=== PATIENT | male | born 1955 | race Caucasian/White ===

== ENCOUNTER 2024-02-15 14:30 | Outpatient (CLI) | payer MEDICARE, BC, SELFPAY ==
--- NOTE | 2024-02-15 | DI.RAD_ITS ---
Exam(s) XR SHOULDER RT COMPLETE 2+V XR HUMERUS RT EXAM: XR SHOULDER RT COMPLETE 2+V CLINICAL HISTORY: PAIN RT SHOULDER M25.511. TECHNIQUE: 2D digital imaging was performed. Five views of the shoulder. Two views of the humerus COMPARISON: CR XR HUMERUS RT from 02/15/2024 FINDINGS: BONES: No acute fracture is present. No bony destructive lesion is seen. Spurring at greater tuberos ity. JOINTS: No dislocation present. Spurring at AC joint. Prominent spur projecting anteroinferiorly fr om the acromion. Undersurface of acromion mild spurring at the glenoid. The elbow is unremarkable a s visualized. SOFT TISSUE: Normal. IMPRESSION: No acute abnormality degenerative changes of the AC joint and prominent inferior acromial spur. Mild -to-moderate degenerative changes glenohumeral joint. DATA REPOSITORY: RADIATION DOSE DELIVERED:
== END 2024-02-15 14:50 ==
PROVIDERS: Visit Provider Physician Assistant Medical
DX: M19.011 Primary osteoarthritis, right shoulder (principal)
CPT/HCPCS: 73030; 73060

== ENCOUNTER 2024-05-23 11:27 | Emergency (ER) | payer MEDICARE, BC, SELFPAY ==
[2024-05-23 11:34] VITALS: BP 170/95; PULSE 89; RESP 15; TEMP 36.4; O2SAT 96
[2024-05-23] MEDS: Ibuprofen 600 MG TAB PO (12:07)
--- NOTE | 2024-05-23 13:28 | ED.GENADUL_ITS ---
Discharge Plan Disposition Patient Disposition: Home Condition: Stable Discharge Details Clinical Impression: Laceration of finger Primary Care Provider: GUILLE VALDEZ ED Provider: Sissy Sandra Home Meds and New Rx's Prescriptions: No Action lisinopril 10 mg tablet 10 mg PO DAILY ibuprofen 400 mg tablet 400 mg PO Q8H magnesium oxide 500 mg capsule 500 mg PO DAILY glucosamine-chondroitin [Osteo Bi-Flex] 250-200 mg tablet 2 tab PO TID Rx Instructions: give after food/meal saw palmetto 160 mg capsule 160 mg PO BID Rx Instructions: give with meal/snack tadalafil 20 mg tablet 20 mg PO DAILY PRN Rx Instructions: administer approximately 30min before sexual activity; do not use more than 1 dose per 24hrs ascorbate calcium (vitamin C) 500 mg tablet 500 mg PO DAILY Discharge Instructions Instructions: Laceration Repair With Stitches ED Additional Instructions: You were seen in the emergency department today for evaluation of a laceration. In our department you do full physical examination performed and the laceration was repaired with stitches. These need to be removed in 10 days, this can be with your primary care provider or at our emergency department please keep the area clean and dry, use [id number] antibiotic ointment and avoid excessive soaking, scrubbing, or movement. Please follow-up with your primary care provider in the next few days to discuss this visit and any symptoms that gómez e, worsen, or persist. Thank you for allowing us to be part of your care. Discharge Data Discharge Date/Time-TO BE ENTERED AT DEPARTURE: 05/23/24 13:39 HPI General Mode of arrival: ambulatory . Date/Time Provider Initiated Documentation: 05/23/24 11:43 . Limitations to Documentation: no limitations . Information obtained by: patient and old records reviewed . HPI Narrative: HPI: This is a 68-year-old male patient, [id number], without significant past medical history presenting for evaluation of a laceration. The patient reports that he cut his right pinky on a corrugated piece of metal shelley yesterday, approximately 20 hours ago. He states that he initially dressed the wound with skin glue and bandaging, but noticed ongoing bleeding that prompted him to seek care today. He reports that the shelley was intact and he has minimal concern for foreign bodies, no blunt trauma or concern for fracture or dislocation. This is an i solated injury and he was in his normal state of health prior to this event. Last tetanus shot 2013. Exam: Gen: Awake and alert, in no apparent distress HEENT: Non-icteric sclera Neck: Supple Lungs: No apparent respiratory distress, normal respiratory effort. CV: Appears well perfused Abdomen: Non-distended MSK: Moves 4 extremities without apparent limitation in ROM. The patient has a 1 and half centimeter laceration to the palmar aspect of the right pinky, with visible adipose tissue. Tendon is intact, patient has preserved resisted flexion at the PIP and DIP. Skin: Visualized skin without rashes, cyanosis. Neuro: Normal Gait, no obvious focal deficits or facial asymmetry. Speaks in full, clear sentences. Sensation preserved distal to this injury, brisk capillary refill Psych: Appropriate for situation. MDM: This is a 68-year-old male patient presenting for evaluation of finger laceration. Differential includes but is not limited to simple laceration, no evidence on physical examination for deep structure injury such as muscle or tendinous injury. Mechanism less consistent with foreign body, fracture, dislocation, no evidence of neurovascular derangement on my physical examination. ED Course: I provided the patient with a dose of ibuprofen, and the laceration was repaired using local anesthetic after thorough cleansing as noted below. Patient tolerated the procedure well, wound was dressed after the fact, and suture care instructions were provided. Stitches to be removed in approximately 10 days. Unfortunately, the patient did depart this facility before the tetanus shot to be administered, as he needed to get to another appointment. However, at this time, the patient has had a full medical evaluation and is safe for discharge to home. They are hemodynamically stable, ambulatory, and tolerating PO. They are understanding of the follow-up plan and return precautions. They left our facility without incident. Sissy Sandra MD Related Data Home Medications ?Medication ?Instructions ?Recorded ?Confirmed lisinopril 10 mg tablet 10 mg PO DAILY 03/01/24 05/23/24 ascorbate calcium (vitamin C) 500 500 mg PO DAILY 04/23/24 05/23/24 mg tablet glucosamine-chondroitin 250 mg-200 2 tab PO TID 04/23/24 05/23/24 mg tablet (Osteo Bi-Flex) ibuprofen 400 mg tablet 400 mg PO Q8H 04/23/24 05/23/24 magnesium oxide 500 mg capsule 500 mg PO DAILY 04/23/24 05/23/24 saw palmetto 160 mg capsule 160 mg PO BID 04/23/24 05/23/24 tadalafil 20 mg tablet 20 mg PO DAILY PRN 04/23/24 05/23/24 Allergies Allergy/AdvReac Type Severity Reaction Status Date / Time No Known Allergies Allergy Verified 05/23/24 14:04 General Stated Complaint: Laceration YVES: 4 Course Vital Signs Vital signs: Vital Signs Temperature 36.4 C L 05/23/24 11:34 Pulse 89 05/23/24 11:34 Respiratory Rate 15 05/23/24 11:34 Blood Pressure 170/95 H 05/23/24 11:34 Pulse Oximetry 96 05/23/24 11:34 Temperature 36.4 C L 05/23/24 11:34 Pulse 89 05/23/24 11:34 Respiratory Rate 15 05/23/24 11:34 Blood Pressure 170/95 H 05/23/24 11:34 Blood Pressure Position Sitting 05/23/24 11:34 Pulse Oximetry 96 05/23/24 11:34 Oxygen Delivery Method Room Air 05/23/24 11:34 Oxygen Flow Rate 0 05/23/24 11:34 Pain Level 1 05/23/24 12:07 Procedure Laceration Laceration 1: Date of Procedure: 05/23/24 Time of procedure: 13:00 Provider that performed the procedure: Sissy Sandra Patient Consented: Verbally Site: hand Side (If applicable): right Description: linear Depth: simple, single layer Local anesthetic: Lidocaine 2% Pre-repair:: wound explored, irrigated extensively and deep structures intact Skin layer closed with: nylon Suture size: 4-0 Number of sutures:: 7 Technique: simple, interrupted Complications: None Medical Decision Making Quality:SDOH Health Related Social Needs: No Data to Display PFSH All Active Problems (Updated 05/23/24 @ 13:29 by Sissy Sandra MD) Laceration of finger (Acute) Tendonitis of long head of biceps brachii of right shoulder (Acute) Rotator cuff tear, right (Acute) Social History Smoking risk assessment performed?: No Alcohol Intake: current Alcohol Intake frequency: a few times a month PAWSS Have you Been Recently Intoxicated or Drunk Within the Last 30 days?: No Have you Ever Experienced Previous Episodes of Alcohol Withdrawal?: No Have you ever Experienced Withdrawal Seizures?: No Have you ever Experienced Delirium Tremens(DT)s?: No Have you ever undergone Alcohol Rehabilitation Treatment (i.e, inpt ot outpatient treatment programs)?: No Have you ever Experienced Blackouts?: No Have you ever Combined Alcohol with other Downers within the last 90 days?: No Have you ever Combined Alcohol with any other Substance of Abuse during the last 90 days?: No Positive Blood Alcohol level on Presentation? [PCS.BAL]: No Evidence of Increased Autonomic Activity (i.e. HR>120, tremor, sweating, agitation, nausea)?: No Result: 0
[2024-05-23 13:36] VITALS: BP 167/90; PULSE 84; RESP 20; O2SAT 97
== END 2024-05-23 13:39 | disposition home or self-care (01) ==
PROVIDERS: Emergency Provider Emergency Medicine; PCP Family Medicine
DX: S61.216A Laceration without foreign body of right little finger without damage to nail, initial encounter (principal); W26.8XXA Contact with other sharp object(s), not elsewhere classified, initial encounter; Y93.89 Activity, other specified; Y92.79 Other farm location as the place of occurrence of the external cause
CPT/HCPCS: 12001; 99283

== ENCOUNTER 2024-06-29 05:44 | Day surgery (SDC) | payer OTHER, BC, MEDICARE, SELFPAY ==
[2024-06-29] VITALS (27 sets, daily range): BP systolic 103–145; BP diastolic 54–80; PULSE 69–83; RESP 15–21; TEMP 36.2–36.5; O2SAT 95–98; BMI 29.1
[2024-06-29] MEDS: Lactated Ringers 1,000 ML 30 ML IV (06:50)
--- NOTE | 2024-06-29 07:02 | PDOC.DSDIS_ITS ---
Date of service: 06/29/24 Discharge Plan Disposition Patient Disposition: Home Condition: Stable Discharge Details Attending Provider: Tony Bo Primary Care Provider: GUILLE VALDEZ Home Meds and New Rx's Prescriptions: New naproxen 250 mg tablet 250 - 500 mg PO BID PRN (Reason: moderate pain and swelling) Qty: 40 0RF oxycodone 5 mg tablet 5 - 10 mg PO .q4-6h MDD 30 mg PRN (Reason: severe pain) Qty: 18 0RF Continued lisinopril 10 mg tablet 10 mg PO DAILY magnesium oxide 500 mg capsule 500 mg PO DAILY glucosamine-chondroitin [Osteo Bi-Flex] 250-200 mg tablet 2 tab PO TID Rx Instructions: give after food/meal saw palmetto 160 mg capsule 160 mg PO BID Rx Instructions: give with meal/snack tadalafil 20 mg tablet 20 mg PO DAILY PRN Rx Instructions: administer approximately 30min before sexual activity; do not use more than 1 dose per 24hrs ascorbate calcium (vitamin C) 500 mg tablet 500 mg PO DAILY vit D3 vitamin E multivitamin [Daily Multi-Vitamin] Tablet 1 tab PO DAILY Fish Oil acetaminophen [Tylenol Extra Strength] 500 mg tablet 500 mg PO ONCE Discontinued ibuprofen 400 mg tablet 400 mg PO Q8H Discharge Instructions Additional Instructions: Surgery: Right shoulder arthroscopy with rotator cuff repair (large degenerative retracted supraspinatus), biceps tenodesis, extensive debridement, and subacromial decompression 06/29/24 Activity: For 6 weeks, you should keep your arm at your side in a neutral position at all times except for physical therapy. Do not try to lift or raise your arm using your own muscles. You should use the sling whenever you are out of the house. At home it is best to remove the sling and rest the arm on a pillow at your side or support the operative side with your other hand. You may allow the arm to dangle at your side. A physical therapy prescription will be sent electronically to begin in about 3 weeks. CONSERVATIVE protocol. Prescriptions: Naproxen 250 mg take 1-2 every 12 hours with a meal as needed for moderate pain Oxycodone 5 mg take 1-2 every 4-6 hours as needed for severe pain You may use [id number] Tylenol (acetaminophen) as needed for mild pain. These pain medications may be taken all at once or in different combinations as needed. Also, recommend Colace (docusate) as a stool softener as surgery and pain medicine cause constipation. You may try [id number]-[id number] diphenhydramine (Benadryl) 25-50 mg nightly as a sleep aid Dressings: Remove shoulder bandage after 3 days. Leave the sticky Steri-Strips in place until they fall off or remove them after you shower. Cover the incisions with Band-Aids or leave them open to air. You may shower after 5 days. Follow-up: 10-[address] Bo You may take off the leg compression stockings this evening at home. You may also leave them on a few days longer if you have a history of leg swelling or edema. Let us know right away if you develop any redness, drainage, fevers, chest pain, or trouble breathing. Do not drink alcohol or drive for at least 24 hours after anesthesia. Please call the office during business hours with any questions or concerns. Stand Alone Forms: Anesthesia Discharge Inst., [place].Nerve Block Instructions, Jesika Conteh ([facility]) Referrals: Tony Bo MD [ [facility] STAFF PHYSICIAN] - 07/10/24 11:00 am Discharge Orders Discharge Orders: Discharge Order (Routine); Ordered 06/29/24 Ordered By: Cici Roach DS: Diagnosis Discharge Diagnosis (1) Rotator cuff tear, right: Status: Acute (2) Tendonitis of long head of biceps brachii of right shoulder: Status: Acute (3) Stiffness of right knee: Status: Deleted (4) Stiffness of right shoulder joint: Status: Acute
--- NOTE | 2024-06-29 07:10 | ANES.PREOP_ITS ---
General Info Date of Service Date Performed: 06/29/24 Height: 5 ft 9 in Weight: 89.6 kg Body Mass Index (BMI): 29.1 Surgical Procedure: Operation Date: 06/29/24 07:40 Proposed Procedure Side Surgeon p Shoulder Rotator Cuff Arthroscopic w/Extensive Debridement, Biceps Tenodesis, Subacromial Decompression, Manipulation Under Anesthesia Right Tony Bo MD Meds Allergies and Home Medications Allergies Allergy/AdvReac Type Severity Reaction Status Date / Time No Known Allergies Allergy Verified 06/29/24 06:06 Home Medication ?Medication ?Instructions ?Recorded lisinopril 10 mg tablet 10 mg PO DAILY 03/01/24 ascorbate calcium (vitamin C) 500 500 mg PO DAILY 04/23/24 mg tablet glucosamine-chondroitin 250 mg-200 2 tab PO TID 04/23/24 mg tablet (Osteo Bi-Flex) magnesium oxide 500 mg capsule 500 mg PO DAILY 04/23/24 saw palmetto 160 mg capsule 160 mg PO BID 04/23/24 tadalafil 20 mg tablet 20 mg PO DAILY PRN 04/23/24 Fish Oil 06/29/24 acetaminophen 500 mg tablet 500 mg PO ONCE 06/29/24 (Tylenol Extra Strength) multivitamin (Daily Multi-Vitamin 1 tab PO DAILY 06/29/24 tablet) naproxen 250 mg tablet 250 - 500 mg (1 - 2 x 250 mg) PO 06/29/24 BID PRN moderate pain and swelling #40 tabs oxycodone 5 mg tablet 5 - 10 mg (1 - 2 x 5 mg) PO .q4-6h 06/29/24 PRN severe pain #18 tabs vit D3 06/29/24 vitamin E 06/29/24 Current Visit Medications: Current Medications Generic Name Dose Route Start Last Admin Trade Name Freq PRN Reason Stop Dose Admin Ringer's Solution 1,000 mls @ 30 mls/hr 06/29/24 06:00 06/29/24 06:50 IV 06/29/24 23:59 30 mls/hr INFUSION BETINA Administration Cefazolin Sodium/Dextrose 2 gm in 50 mls @ 100 mls/hr 06/29/24 06:00 Ancef Duplex IVPB 06/29/24 23:59 PREOP BETINA Tranexamic Acid/Sodium Chloride 1,000 mg in 100 mls @ 600 mls/hr 06/29/24 06:00 IVPB 06/29/24 23:59 DIRECTED [facility] IV Miscellaneous Supplies 1 each 06/29/24 06:00 Iv Access IV 06/29/24 23:59 DIRECTED [facility] Oxycodone HCl 0 mg 06/29/24 07:02 Oxycodone 5 Mg Tab PO 07/29/24 07:01 Q3H PRN PRN Pain Sodium Chloride 0 ml 06/29/24 06:00 Normal Saline Flush 10 Ml Syr IV 06/29/24 23:59 PRN PRN Sodium Chloride 0 ml 06/29/24 06:00 Normal Saline 10 Ml Vial IJ 06/29/24 23:59 DIRECTED PRN Sterile Water 0 ml 06/29/24 06:00 Water,Injection,Sterile 10 Ml Vial IJ 06/29/24 23:59 DIRECTED PRN PFSH Active Problems Active Problems: Problem Status Onset Code Tendonitis of long head of biceps brachii of right shoulder Acute M75.21 Rotator cuff tear, right Acute M75.101 Medical History Medical History Right knee pain Neck pain Low back pain Irritable bowel syndrome with diarrhea Hyperplasia of prostate Hyperlipemia History of TIA (transient ischemic attack) and stroke 2012 Benign essential hypertension Surgical History Surgical History History of colonoscopy History of orthopedic surgery 1985-Right Knee Tobacco Smoking/Tobacco Use Status: Former Tobacco Use Passive smoking exposure: No Alcohol Alcohol Intake: current Alcohol intake frequency: a few times a month Alcohol type: hard liquor Substance Use Substance use: Never Substance use type: does not use Details: alcohol: t-7, one Vital Signs and Lab Results Vital Signs Most Recent Vital Signs in EMR: Most Recent Vital Signs Temp Pulse Resp BP Pulse Ox 36.5 C 75 16 139/76 98 06/29/24 06:14 06/29/24 06:14 06/29/24 06:14 06/29/24 06:14 06/29/24 06:14 Lab Results Blood Type / Crossmatch: No Data to Display Complete Blood Count: No Data to Display Complete Metabolic Panel: No Data to Display Liver Function Panel: No Data to Display Coagulation Panel: No Data to Display Cardiac Panel: No Data to Display Arterial Blood Gas: No Data to Display Venous Blood Gas: No Data to Display Pancreas Panel: No Data to Display Thyroid Panel: No Data to Display Infectious Disease: No Data to Display Blood Cultures: No Data to Display Toxicology Panel: 2 No Data to Display Anesthesia Assessment and Plan Anesthesia History Personal History: No History of Anesthesia Complications Family History: No Family History of Anesthesia Complications Exercise Tolerance Exercise Tolerance: Metabolic Equivalents>4 Cardiac & Pulmonary Exam Cardiac Exam: Normal S1/S2 Heart Sounds Pulmonary Exam: Clear Bilateral Breath Sounds Implantable Cardiac Device Does patient have a Pacemaker or an ICD?: No Airway Exam Known Difficult Airway: No Mallampati Class: 2 Mouth Opening: Normal (> 3cm) Thyromental Distance: Less than 3 cm Neck Range of Motion: Full ROM Neck Circumference: Normal Teeth Condition: Normal Dentition ASA Classification ASA Score: ASA 3 Emergency Case?: No NPO Status NPO Status: NPO Clears >2 hours, Solids >8 hours Anesthesia Plan Resuscitation Status: Full Code Anesthesia Technique: General Anesthesia Airway Planned: Endotracheal Tube Pain Management: Surgeon and patient request nerve block Monitors Used: Standard Monitors Preoperative Comments:: Discussed TIA history with patient. He states he has had 2 incidents in the past, 10-15 or so years ago and 2 years ago where he is completing a task and suddenly has no idea what he is doing and has confusion. Denies any facial droop, slurring of speech or extremity involvement. This has lasted a few hours and then totally resolved. He states he shared this with his PCP but no additional workup was done. We discussed surgery positioning and possible increased risk of TIA/Stroke which could be minor or debilitating/catastrophic. Pt. verbalizes understanding this but wishes to proceed when given options to postpone surgery to for further workup. Surgeon aware and also wishes to proceed given patients current poor arm mobility/function.
--- NOTE | 2024-06-29 07:16 | W.PM.OP ---
Operative Note Operative Note PRE-OP DIAGNOSIS: Right: 1. Rotator cuff tear 2. Biceps split tearing 3. Bursitis 4. Stiffness POST-OP DIAGNOSIS: same PROCEDURE: Right shoulder: 1. Rotator cuff repair, CPT# 83091. This involved repair of the supraspinatus using anchors and sutures to reattach the rotator cuff back to the footprint of the greater tuberosity. 2. Arthroscopic biceps tenodesis, CPT# 69774. This involved arthroscopically suturing and reattaching the long head of the biceps tendon to the proximal humerus at the superior margin of the bicipital groove with a screw at the correct tension. 3. Extensive debridement, CPT# 47976. This involved using arthroscopic hand instruments, power instruments, and radiofrequency instruments to release the long head of the biceps tendon and debride areas of labral tearing, synovitis, release anterior capsule for motion, and debride cartilage superior humeral head working within the glenohumeral joint anteriorly, superiorly and posteriorly. 4. Subacromial decompression with partial acromioplasty, CPT# 04910. This involved using arthroscopic power instruments and a radiofrequency wand to complete a bursectomy and smooth the undersurface of the acromion. 5. Manipulation under anesthesia, CPT #98857 The assistant professor of physics was medically required in order to help assist in techniques above, which require positioning the arm, holding the arthroscope, and manipulating multiple instruments and sutures at the same time. This cannot be done without the help of an experienced assistant professor of physics. SURGEON: Tony Bo GRAPHIC ART TECHNICIAN: Cici Roach ANESTHESIA TYPE: Local By Surgeon, General LMA/ETT and Primary Nerve Block Refer to Anesthesia Record ESTIMATED BLOOD LOSS: 10 PATHOLOGY: none sent COMPLICATIONS: None Patient was transported to: PACU Patient's condition: stable Implants: Arthrex: 4.75mm SwiveLocks x 4 Indications: The patient was diagnosed with the above conditions and appropriately indicated for surgical intervention. Please see complete medical record for details. Findings: Exam under anesthesia: Quite stiff, limited range of motion about 20 degrees rotation, barely 90 degrees forward elevation. Glenohumeral joint: Moderate Jonny significant synovitis anterior and superior. Thickened contracted anterior capsule more than inferior or posterior. Obvious full-thickness retracted supraspinatus void. Biceps split tearing appearing superior aspect bicipital groove. Mostly intact articular infraspinatus and subscapularis. Mild chondromalacia, less than expected. Subacromial space: Moderate bursitis. Lateral tissue defect. Thickened medially retracted majority supraspinatus with abnormal tendon edge delamination and limited tendon excursion scarred to the superior glenoid and undersurface acromion medially. Intact infraspinatus. Soft/poor bone quality about the exposed footprint. Procedure Description: In the operating room, general anesthesia was induced. Bilateral shoulders were examined. The correct patient, procedure, and side of the procedure were all verified prior to beginning. The right shoulder was examined with range of motion about 90 degrees forward elevation and 20 degrees external rotation. Internal rotation at about 90 degrees 45 degrees, abduction about 90 degrees. These endpoints had firm, stiff feel. A short lever arm and gradual to steady gentle pressure was used to perform the manipulation alternating between external rotation at the side, forward elevation, and abduction with internal and external rotation. Deliberately gradually and carefully excellent releases were felt in forward elevation. Release was not really forced and external rotation. Less release needed in abduction and internal rotation. Range of motion was then tested and full forward elevation, but limited external rotation about 35 degrees. Forward elevation and internal rotation across the body endpoints were gently exaggerated. The shoulder joint remained stable. The patient was positioned in the beachchair position. All bony prominences were well-padded. Preoperative antibiotics were administered. The shoulder was prepped and draped in the usual sterile fashion. The correct patient, procedure, and side of the procedure were all verified prior to incision. Starting through the posterior portal a standard complete diagnostic arthroscopy was performed of the glenohumeral joint including inspection of the long head of the biceps, anterior and superior labrum, subscapularis tendon, supraspinatus and infraspinatus tendons, and axillary recess. The glenoid and humeral head cartilage as well as the posterior labrum were inspected from an anterior viewing portal. Significant findings and interventions noted above. Hemarthrosis from manipulation was copiously irrigated. The anterior capsule still thickened and intact, released with arthroscopic scissors, and then the ends ablated with the radiofrequency wand restoring full external rotation quite readily. Working through the full-thickness rotator cuff tear, an all-arthroscopic suprapectoral biceps tenodesis was performed through an anterior portal using a Loop N Tack method with a SutureTape FiberLink cinched around and through the tendon. The biceps was tenotomized from the labrum and withdrawn out the superior anterolateral cannula for later repair with the rotator cuff. Starting through the posterior portal, the arthroscope was directed into the subacromial space. A lateral 50 yard line lateral portal was created. A combination of power instruments and a radiofrequency ablator were used to debride bursitis anteriorly, posteriorly, and laterally as well as expose and smooth bone spurring on the undersurface of the acromion. The coracoacromial ligament was partially released. The bursectomy was completed viewing laterally and working from posteriorly and the rotator cuff was thoroughly inspected with findings noted above. The large supraspinatus rotator cuff tear was thoroughly inspected. Debrided of bursal and thin remnant tissue laterally. The greater tuberosity was largely exposed starting from the biceps through the infraspinatus. The tendon edge was significantly thickened and abnormally frayed and somewhat delaminated. This was debrided of nonviable tissue while also preserving as much length as possible for the repair. The tendon was then released from the superior glenoid on the articular and bursal sides. It had very limited tissue and external version anteriorly centrally and more moderate excursion posteriorly. In order to optimize bone tendon repair, the arthroscopic bur was used to medialize the supraspinatus footprint about 5 mm as well as prepare the remainder of the greater tuberosity for bone tendon healing. There was reasonable reapposition of tendon to bone especially posteriorly through centrally for double row repair. The anterior medial row anchor was then punched, anchor loaded with the biceps tenodesis repair suture at appropriate tension, and anchor secured. The knotless repair suture was then shuttled through the anterior supraspinatus and secured over the biceps tenodesis. A posterior medial row anchor was placed with fiber tapes as well. A link was then used to shuttle the fiber tapes from each anchor through the appropriate level of the supraspinatus medially and the best compromise of tension and repair quality. An intermediate row anchor was considered, but there was quite poor bone quality so it was omitted to keep better spacing between all anchors. A single tape from each medial row anchor was brought out laterally there was reasonably good reduction compression posteriorly through centrally with tendon edge reaching the medialized footprint anteriorly and more of a tissue void anteriorly and especially anteriorly laterally. A FiberLink suture tape was secured centrally and with a tape from each anchor secured to an anterior lateral anchor. The remaining tapes were then secured with additional length placed posteriorly to a posterior lateral anchor. The repair was quite stable through motion and testing, but will remain at heightened risk for healing failure due to the limited tendon available and poor tissue and bone quality. The shoulder was drained of arthroscopic fluid. All portal sites were copiously irrigated. These incisions were closed using 3-0 Monocryl in a buried fashion and then covered with Mastisol, Steri-Strips, Xeroform, dry gauze, and ABDs. The dressings were covered and secured with Medipore tape. The operative extremity was placed into a sling for immobilization. The patient awoke from anesthesia without complication and was transferred to the recovery room in a stable condition. Date of Procedure: 06/29/24
[2024-06-29] MEDS: TRANEXAMIC ACID/SOD. CHL. 1,000 MG/100 ML BAG 600 MG IVPB (07:40)
[2024-06-29] MEDS: ceFAZolin 2 GM/50 ML BAG IVPB (07:50)
[2024-06-29] MEDS: EPINEPHrine 10 MG/10 ML ML (08:20)
[2024-06-29] MEDS: Bupivacaine 0.25% Pres-Free 30 ML VIAL (08:22)
--- NOTE | 2024-06-29 08:26 | W.ANESNERVE ---
Nerve Block Single Injection Procedure Date and Time Date Performed: 06/29/24 Procedure Start: 07:22 Location Where Procedure Performed Procedure Location: Day Surgery Unit Reason Performed: Postoperative Analgesia Requesting Provider: Tony Bo Timeout Performed Timeout Performed: Yes Monitoring Used ECG, Blood Pressure, SpO2 and See EMR for corresponding vital signs Sterility Sterility: Hand Hygiene, Surgical Cap, Surgical Mask, Sterile Gloves and Chlorhexidine Sedation Given During Procedure Sedation Given (Indicate Dose Given): Versed IV Dose:: 2mg Patient Mental Status Patient Mental Status: Sedate with meaningful communication Nerve Block 1st Nerve Block: Laterality: Right Block Type: Supraclavicular Ultrasound Image Saved?: Yes Needle / Catheter Used: 100mm SonoPlex II Local Anesthetic Bolus (Indicate Dose Given): Lidocaine used for local infiltration of skin, Injected in 3-5ml increments after negative blood aspiration, Bupivacaine 0.5% Dose:: 10ml and Exparel Dose:: 10ml Additives (Indicate Dose Given): None Ultrasound: Sterile probe cover and gel used Nerve Stimulator: Supplement to Ultrasound use and No twitch or parasthesia noted < 0.5 mA Paresthesia: None Procedure Tolerated: No Complications and Patient tolerated well Procedure Outcome: Successful Procedure Comment: Tolerated well. No concerns Performed By: Freddy Bonilla
--- NOTE | 2024-06-29 10:38 | W.ANESPOSTOP ---
Postoperative Evaluation Date, Time and Location Date Performed: 06/29/24 Time Performed: 10:38 Patient Location: PACU Vital Signs Most Recent Imported Vital Signs: Most Recent Vital Signs Temp Pulse Resp BP Pulse Ox 36.5 C 74 18 105/72 96 06/29/24 10:15 06/29/24 10:26 06/29/24 10:26 06/29/24 10:26 06/29/24 10:26 Pain Score Most Recent Pain Score: Most Recent Pain Score Pain Level 0 06/29/24 10:30 Assessment Mental Status: Awake (Alert & Oriented to Patient Baseline) (Sleepy but oriented.) Airway and Respiratory Function: Patent airway with normal (patient baseline) respiratory exam Cardiovascular Function: Hemodynamically Stable Hydration Status: Adequately Hydrated Nausea & Vomiting: No Nausea or Vomiting Pain: Pt. Denies Any Pain Peripheral Nerve Block: Regional nerve block not resolved at time of post operative discharge
== END 2024-06-29 12:18 | disposition home or self-care (01) ==
PROVIDERS: PCP Family Medicine; Visit Provider Student in an Organized Health Care Education/Training Program
PROC: (CPT 29827; principal; 2024-06-29 07:30)
PROC: (CPT 23700; 2024-06-29 07:30)
DX: M75.101 Unspecified rotator cuff tear or rupture of right shoulder, not specified as traumatic (principal); M25.611 Stiffness of right shoulder, not elsewhere classified; M75.21 Bicipital tendinitis, right shoulder; G89.18 Other acute postprocedural pain
CPT/HCPCS: 29827; 29828; 29823; 29826; 23700; 64415; J0665; J0666; J0690; J1100; J2250; J2371; J2405; J2704

== ENCOUNTER → 2024-07-10 10:53 | Outpatient (BNVA) | payer MEDICARE, BC, SELFPAY | PROVIDERS: PCP Family Medicine; Referring Provider Family Medicine; Visit Provider Student in an Organized Health Care Education/Training Program | DX: Z47.89 Encounter for other orthopedic aftercare (principal); M25.611 Stiffness of right shoulder, not elsewhere classified | CPT/HCPCS: 99024 ==

== ENCOUNTER → 2024-12-20 11:15 | Outpatient (BNVA) | payer MEDICARE, BC, SELFPAY | PROVIDERS: PCP Family Medicine; Referring Provider Family Medicine; Visit Provider Physical Therapy Assistant | DX: Z12.11 Encounter for screening for malignant neoplasm of colon (principal); Z80.0 Family history of malignant neoplasm of digestive organs | CPT/HCPCS: S0285 ==

== ENCOUNTER 2025-01-03 09:06 | Day surgery (SDC) | payer MEDICARE, BC, SELFPAY ==
[2025-01-03 09:15] VITALS: BP 143/71; PULSE 76; RESP 16; TEMP 36.4; O2SAT 97
[2025-01-03] MEDS: Lactated Ringers 1,000 ML 80 ML IV (09:40)
--- NOTE | 2025-01-03 09:40 | W.ANESPRE ---
General Info Date of Service Date Performed: 01/03/25 Height: 5 ft 8 in Weight: 89.4 kg Body Mass Index (BMI): 29.9 Surgical Procedure: Operation Date: 01/03/25 10:35 Proposed Procedure Side Surgeon sandro Boswell MD Meds Allergies and Home Medications Allergies Allergy/AdvReac Type Severity Reaction Status Date / Time No Known Allergies Allergy Verified 01/03/25 09:30 Home Medication ?Medication ?Instructions ?Recorded ascorbate calcium (vitamin C) 500 500 mg PO DAILY 04/23/24 mg tablet glucosamine-chondroitin 250 mg-200 2 tab PO TID 04/23/24 mg tablet (Osteo Bi-Flex) magnesium oxide 500 mg capsule 500 mg PO DAILY 04/23/24 saw palmetto 160 mg capsule 160 mg PO BID 04/23/24 tadalafil 20 mg tablet 20 mg PO DAILY PRN 04/23/24 acetaminophen 500 mg tablet 500 mg PO ONCE 06/29/24 (Tylenol Extra Strength) multivitamin (Daily Multi-Vitamin 1 tab PO DAILY 06/29/24 tablet) lisinopril 10 mg tablet 20 mg PO DAILY 12/13/24 bisacodyl 5 mg tablet,delayed 5 mg PO ONCE #4 tabs 12/20/24 release (Dulcolax (bisacodyl)) polyethylene glycol 3350 17 17 g PO ONCE #238 grams 12/20/24 gram/dose oral powder cholecalciferol (vitamin D3) 25 25 mcg PO DAILY 01/02/25 mcg (1,000 unit) capsule (Vitamin D3) omega 5-yvx-gok-fish oil 1,000 mg 1 cap PO DAILY 01/02/25 (120 mg-180 mg) capsule (Fish Oil) vitamin E 268 mg (400 unit) capsule 268 mg PO DAILY 01/02/25 Current Visit Medications: Current Medications Generic Name Dose Route Start Last Admin Trade Name Freq PRN Reason Stop Dose Admin Ringer's Solution 1,000 mls @ 80 mls/hr 01/03/25 06:00 IV 01/03/25 23:59 INFUSION BETINA IV Miscellaneous Supplies 1 each 01/03/25 06:00 Iv Access IV 01/03/25 23:59 DIRECTED BETINA Sodium Biphosphate/Sodium Phosphate 133 ml 01/03/25 06:00 Na Phosphate Enema-Adult 133 Ml Btl LA 01/03/25 23:59 DIRECTED PRN Sodium Chloride 0 ml 01/03/25 06:00 Normal Saline Flush 10 Ml Syr IV 01/03/25 23:59 PRN PRN Sodium Chloride 0 ml 01/03/25 06:00 Normal Saline 10 Ml Vial IJ 01/03/25 23:59 DIRECTED PRN Sterile Water 0 ml 01/03/25 06:00 Water,Injection,Sterile 10 Ml Vial IJ 01/03/25 23:59 DIRECTED PRN PFSH Active Problems Active Problems: Problem Status Onset Code Stiffness of right shoulder joint Acute M25.611 Tendonitis of long head of biceps brachii of right shoulder Acute M75.21 Rotator cuff tear, right Acute M75.101 Medical History Medical History Right knee pain Neck pain Low back pain Irritable bowel syndrome with diarrhea Hyperplasia of prostate Hyperlipemia History of TIA (transient ischemic attack) and stroke 2011-No residual effects per pt Benign essential hypertension Surgical History Surgical History History of colonoscopy History of orthopedic surgery 1985-Right Knee Tobacco Smoking/Tobacco Use Status: Former Tobacco Use Passive smoking exposure: No Alcohol Alcohol Intake: current Alcohol intake frequency: a few times a month Alcohol type: hard liquor Substance Use Substance use: Never Substance use type: does not use Vital Signs and Lab Results Vital Signs Most Recent Vital Signs in EMR: Most Recent Vital Signs Temp Pulse Resp BP Pulse Ox 36.4 C L 76 16 143/71 H 97 01/03/25 09:15 01/03/25 09:15 01/03/25 09:15 01/03/25 09:15 01/03/25 09:15 Anesthesia Assessment and Plan Anesthesia History Personal History: No History of Anesthesia Complications Family History: No Family History of Anesthesia Complications Exercise Tolerance Exercise Tolerance: Metabolic Equivalents>4 Pertinent Negatives Pertinent Negatives: No Symptoms of GERD, No Major Cardiovascular Symptoms or Complaints and No Major Pulmonary Symptoms or Complaints Cardiac & Pulmonary Exam Cardiac Exam: Normal S1/S2 Heart Sounds Pulmonary Exam: Clear Bilateral Breath Sounds Implantable Cardiac Device Does patient have a Pacemaker or an ICD?: No Airway Exam Known Difficult Airway: No Mallampati Class: 2 Mouth Opening: Normal (> 3cm) Thyromental Distance: Less than 3 cm Neck Range of Motion: Full ROM Neck Circumference: Normal Teeth Condition: Normal Dentition ASA Classification ASA Score: ASA 2 Emergency Case?: No NPO Status NPO Status: NPO Clears >2 hours, Solids >8 hours Anesthesia Plan Resuscitation Status: Full Code Anesthesia Technique: General Anesthesia Airway Planned: Natural Airway Monitors Used: Standard Monitors
[2025-01-03 10:10] VITALS: BMI 29.9
--- NOTE | 2025-01-03 10:10 | W.PM.DSUDISC ---
Date of service: 01/03/25 Discharge Plan Disposition Patient Disposition: Home Condition: Stable Discharge Details Reason For Visit: screening colonoscopy Attending Provider: Isabel Boswell Primary Care Provider: Mohan Marrero Home Meds and New Rx's Prescriptions: Continued magnesium oxide 500 mg capsule 500 mg PO DAILY glucosamine-chondroitin [Osteo Bi-Flex] 250-200 mg tablet 2 tab PO TID Rx Instructions: give after food/meal saw palmetto 160 mg capsule 160 mg PO BID Rx Instructions: give with meal/snack tadalafil 20 mg tablet 20 mg PO DAILY PRN Rx Instructions: administer approximately 30min before sexual activity; do not use more than 1 dose per 24hrs ascorbate calcium (vitamin C) 500 mg tablet 500 mg PO DAILY lisinopril 10 mg tablet 20 mg PO DAILY cholecalciferol (vitamin D3) [Vitamin D3] 25 mcg (1,000 unit) capsule 25 mcg PO DAILY vitamin E 268 mg (400 unit) capsule 268 mg PO DAILY omega 5-xnc-blp-fish oil [Fish Oil] 1,000 (120-180) mg capsule 1 cap PO DAILY multivitamin [Daily Multi-Vitamin] Tablet 1 tab PO DAILY acetaminophen [Tylenol Extra Strength] 500 mg tablet 500 mg PO ONCE Discontinued bisacodyl [Dulcolax (bisacodyl)] 5 mg tablet,delayed release (DR/EC) 5 mg PO ONCE Qty: 4 0RF Rx Instructions: Take per colonoscopy instructions provided by ordering providers office polyethylene glycol 3350 17 gram/dose powder 17 g PO ONCE Qty: 238 0RF Rx Instructions: Take per colonoscopy instructions provided by ordering providers office Discharge Instructions Additional Instructions: Next colonoscopy due in 5 years Two small polyps seen and removed. Next colonoscopy will be due in 5 years due to these polyps and family history. Diverticulosis of the sigmoid colon noted today. No diverticulitis (infection) present. Take a daily fiber supplement and eat a high fiber diet to prevent problems and progression of diverticulosis. Activity:: Activity as Tolerated Diet:: As Tolerated Discharge Orders Discharge Orders: Discharge Order (Routine); Ordered 01/03/25 Ordered By: Isabel Boswell DS: Diagnosis Discharge Diagnosis (1) Family history of colon cancer requiring screening colonoscopy: Status: Acute (2) Polyp of transverse colon: Status: Acute (3) Polyp, sigmoid colon: Status: Acute (4) Diverticulosis of sigmoid colon: Status: Acute
--- NOTE | 2025-01-03 10:12 | W.COLOREPORT ---
Date of service: 01/03/25 Time of Service: 10:33 Colonoscopy Report Date of procedure: 01/03/25 Pre-op diagnosis general: Screening for colorectal cancer Post-op diagnosis procedure note: same (1. screening due to family history. 2. ascending colon polyp. 3. Sigmoid polyp. 4. sigmoid diverticulosis. ) Procedure: Colonoscopy with cold forceps polypectomy Surgeon: Isabel Boswell Anesthesia Type: General:No Airway Estimated blood loss (mL): 2 Pathology: other (1. transverse colon polyp. 2. sigmoid polyp) Complications: None Indications: screening for colorectal cancer Prep: Miralax/Dulcolax (fair/good) Procedure Description: Informed consent was obtained and the patient was taken to the procedure area. The patient was placed in left lateral decubitus position on the procedure table. Timeout was performed. Anesthesia was induced. A lubricated colonoscope was inserted through the anus and passed to the cecum. The cecum was identified by the ileocecal valve and the appendiceal orifice. The scope was then slowly withdrawn and the colonic and rectal mucosa examined. Proximal transverse colon with 4mm sessile polyp excised with cold forceps. Distal sigmoid colon with 3mm sessile polyp excised with cold forceps. Dense sigmoid diverticulosis, wide and small mouthed. Residual stool balls from the diverticula occlude the view in some areas. Prep was otherwise good and adequate. The scope was retroflexed in the anorectal junction examined. Uncomplicated internal hemorrhoids present. Assessment and plan: Family history of colon cancer in father Screening for colorectal cancer transverse colon polyp sigmoid polyp sigmoid diverticulosis Two small polyps seen and removed. Next colonoscopy will be due in 5 years due to polyps and family history. Fiber supplementation recommended for diverticulosis.
--- NOTE | 2025-01-03 10:25 | BOWEL_PTH ---
PATIENT: Baltazar Malik V LOC: ANY U#:[id number] AGE/SX: 69/M ROOM: RE01/03/[address]: Isabel Boswell MD : [id number] BED: DIS: 01/03/2025 SPEC #: [id number] RECD: 01/03/25 12:47 STATUS: PATRICE REQ #: [id number] NILA: 01/03/25 10:[address]: Isabel Boswell DEPT: Surgical Specimen RECD BY: Ara Storm ENTERED: 01/03/25 12:49 SP TYPE: Bowel OTHR DR: Mohan Marrero, ZAIN Tissues: 1 - BIOPSY BOWEL 2 - BIOPSY BOWEL Procedures: GROSS AND MICRO LEVEL 4 Comments: [id number]
[2025-01-03 10:38] VITALS: BP 114/75; PULSE 79; RESP 16; TEMP 36; O2SAT 96
[2025-01-03 11:15] VITALS: BP 131/75; PULSE 71; RESP 16; TEMP 36; O2SAT 97
--- NOTE | 2025-01-03 13:28 | W.ANESPOSTOP ---
Postoperative Evaluation Date, Time and Location Date Performed: 01/03/25 Time Performed: 11:15 Patient Location: Day Surgery Unit Vital Signs Most Recent Imported Vital Signs: Most Recent Vital Signs Temp Pulse Resp BP Pulse Ox 36.0 C L 71 16 131/75 97 01/03/25 11:15 01/03/25 11:15 01/03/25 11:15 01/03/25 11:15 01/03/25 11:15 Pain Score Most Recent Pain Score: Most Recent Pain Score Pain Level 0 01/03/25 11:15 Assessment Mental Status: Awake (Alert & Oriented to Patient Baseline) Airway and Respiratory Function: Patent airway with normal (patient baseline) respiratory exam Cardiovascular Function: Hemodynamically Stable Hydration Status: Adequately Hydrated Nausea & Vomiting: No Nausea or Vomiting Pain: Pt. Denies Any Pain Peripheral Nerve Block: Patient did not receive a nerve block
== END 2025-01-03 11:44 | disposition home or self-care (01) ==
PROVIDERS: Visit Provider Surgery
PROC: 0DJD8ZZ Inspection of Lower Intestinal Tract, Via Natural or Artificial Opening Endoscopic (ICD-10-PCS; CPT 45378; principal; 2025-01-03 10:30)
DX: Z12.11 Encounter for screening for malignant neoplasm of colon (principal); Z80.0 Family history of malignant neoplasm of digestive organs; D12.3 Benign neoplasm of transverse colon; D12.5 Benign neoplasm of sigmoid colon; K57.30 Diverticulosis of large intestine without perforation or abscess without bleeding
CPT/HCPCS: 45380; 88305; J2003; J2704